=== PATIENT | male | born 2000 | race African-American/Black ===

== ENCOUNTER 2024-05-31 14:17 | Emergency (ER) | payer OTHER ==
[~2024-05-31] VITALS: Ht 195.6 cm; Wt 83.6 kg
[2024-05-31] MEDS ORDERED: PRED20TA PO (16:57)
[2024-05-31] MEDS ORDERED: CEPH500T PO (16:57)
[2024-05-31 17:11] VITALS: BP 126/68; TEMP 97.9; O2SAT 100
== END 2024-05-31 17:14 | disposition home or self-care (01) ==
LOC: M ED 14:17
DX: L03.114 Cellulitis of left upper limb (principal); Z79.2 Long term (current) use of antibiotics; Z79.52 Long term (current) use of systemic steroids